=== PATIENT | female | born 1940 | race Hispanic/Latino ===

== ENCOUNTER 2016-10-06 13:34 | Inpatient (IN) | payer MEDICARE, BC ==
[2016-10-06 13:38] VITALS: BMI 20.3
--- NOTE | 2016-10-06 14:19 | RAD ---
PROCEDURE: Left Ankle Radiographs. HISTORY: pain COMPARISON: None FINDINGS: BONES: Minimally displaced medial malleolar fracture. Displaced oblique distal fibular fracture. JOINTS: Widened ankle mortise. Talar dome is smooth. SOFT TISSUES: Mild circumferential soft tissue swelling. OTHER FINDINGS: None. IMPRESSION: Fracture medial malleolus and distal fibula.
--- NOTE | 2016-10-06 15:27 | ED PDOC ---
Arrival/HPI - General Chief Complaint: Trauma Time Seen by Provider: 10/06/16 13:53 Historian: Patient - History of Present Illness Narrative History of Present Illness (Text): 10/06/16 15:24 Patient with no past medical history, otherwise is healthy, reports injury of the L ankle, when she slipped and fell prior to arrival at her home. Patient now complains of pain; can bear weight on ankle. Otherwise: (-) hip pain, (-) head injury, (-) LOC, (-) back pain, (-) knee pain, (-) other injury. PMD Ruddy David Past Medical History - Provider Review Nursing Documentation Reviewed: Yes - Infectious Disease Hx of Infectious Diseases: None - Cardiac Hx Cardiac Disorders: No - Pulmonary Hx Respiratory Disorders: No - Psychiatric Hx Substance Use: No - Anesthesia Hx Anesthesia: No Family/Social History - Physician Review Nursing Documentation Reviewed: Yes Family/Social History: No Known Family HX Smoking Status: Never Smoked Hx Alcohol Use: No Hx Substance Use: No Allergies/Home Meds Allergies/Adverse Reactions: Allergies No Known Allergies Allergy (Verified 10/06/16 13:38) Home Medications: Home Meds Medication Instructions Recorded Confirmed No Known Home Med 10/06/16 10/06/16 Review of Systems - Review of Systems Constitutional: Normal. absent: Fatigue, Weight Change, Fevers Respiratory: Normal. absent: SOB, Cough, Sputum Cardiovascular: Normal. absent: Chest Pain, Palpitations, Edema Gastrointestinal: Normal. absent: Abdominal Pain, Stool Changes, Constipation Musculoskeletal: Normal, Arthralgias. absent: Back Pain, Neck Pain Skin: Normal. absent: Rash, Pruritis, Skin Lesions Neurological: Normal. absent: Headache, Dizziness, Focal Weakness Physical Exam - Physical Exam Narrative Physical Exam (Text): 10/06/16 15:26 GENERAL APPEARANCE: Patient is awake, alert, oriented x 3, in mild painful distress. SKIN: Warm, dry; (-) cyanosis. EYES: (-) conjunctival pallor. ENMT: Mucous membranes moist. NECK: (-) tenderness, (-) stiffness, (-) lymphadenopathy, (-) JVD. CHEST AND RESPIRATORY: (-) rash, (-) chest wall tenderness. Lungs: (-) rales , (-) rhonchi, (-) wheezes, (-) rub; breath sounds equal bilaterally. HEART AND CARDIOVASCULAR: (-) irregularity; (-) murmur, (-) gallop, (-) rub. ABDOMEN AND GI: Soft; (-) distention, (-) tenderness, (-) palpable pulsatile mass. LOWER EXTREMITY: Ankle: (+) Deformity noted, (+) swelling, tenderness of the medial aspect of the ankle; (+) ecchymosis, swelling and tenderness of the lateral ankle; (+) limited range of motion secondary to pain. Achilles tendon intact and nontender. Knee and foot: (-) injury. (+) distal pulse, (+) distal sensation. NEURO AND PSYCH: Mental status as above. Cranial nerves grossly intact; strength symmetric. Vital Signs Temp Pulse Resp BP Pulse Ox 10/06/16 17:15 98.5 F 67 20 98 10/06/16 13:41 97.9 F 62 19 120/69 99 Medical Decision Making ED Course and Treatment: 10/06/16 15:30 76-year-old female otherwise healthy with no past medical history, presents with injury to the left ankle, based on exam patient likely has a fracture. X- ray left ankle ordered. Patient is refusing any pain medication at this time. Call placed to patient's PMD for orthotic consultation. Case discussed with Dr. Salazar, recommends Dr. Albert for orthopedic consult. Case discussed with Dr. Albert, recommends that patient be admitted, is also requesting ice, elevation, and splint application at this time. Labs ordered. Patient medicated with morphine and Zofran IV. Orthoglass posterior short leg and sugar tong splint applied by PA. Neurovascular intact post splint application. Based on history, exam and diagnostic results plan will be for inpatient admission. Dr. Salazar notified of plan. Patient states she fully agrees with and understands the current plan of care. I have given the patient opportunity to ask any additional questions. - Lab Interpretations Lab Results: 10/06/16 16:00 10/06/16 16:00 Lab Results 10/06/16 16:20: Blood Type Pending, Antibody Screen Pending, BBK History Checked No verified bt 10/06/16 16:00: PT 10.7, INR 0.99, APTT 26.0 10/06/16 16:00: Sodium 138, Potassium 3.7, Chloride 99, Carbon Dioxide 26, Anion Gap 17, BUN 15, Creatinine 0.8, Est GFR ( Amer) > 60, Est GFR (Non- Af Amer) > 60, Random Glucose 115 H, Calcium 9.0, Total Bilirubin 0.9, AST 35, ALT 42, Alkaline Phosphatase 72, Total Protein 7.2, Albumin 4.4, Globulin 2.8, Albumin/Globulin Ratio 1.6 10/06/16 16:00: WBC 4.5, RBC 3.59, Hgb 11.7 L, Hct 33.3 L, MCV 92.8, MCH 32.6, MCHC 35.1, RDW 12.7, Plt Count 185, MPV 9.8 I have reviewed the lab results: Yes Interpretation: All labs normal - RAD Interpretation Narrative RAD Interpretations (Text): 10/06/16 17:17 CXR : NAD, as read by PA X-ray left ankle: FINDINGS: BONES: Minimally displaced medial malleolar fracture. Displaced oblique distal fibular fracture. JOINTS: Widened ankle mortise. Talar dome is smooth. SOFT TISSUES: Mild circumferential soft tissue swelling. OTHER FINDINGS: None. IMPRESSION: Fracture medial malleolus and distal fibula. Radiology Orders: 10/06/16 13:54 ANKLE LEFT 3 VIEWS ROUTINE [RAD] Stat 10/06/16 15:54 CHEST PORTABLE [RAD] Stat - Medication Orders Current Medication Orders: Acetaminophen (Tylenol 325mg Tab) 650 mg PO Q4H PRN PRN Reason: Pain, Mild (1-3) Morphine Sulfate (Morphine) 4 mg IVP Q4 PRN PRN Reason: Pain, severe (8-10) Oxycodone/Acetaminophen (Percocet 5/325 Mg Tab) 1 tab PO Q4 PRN PRN Reason: Pain, moderate (4-7) Stop: 10/09/16 20:01 Discontinued Medications Morphine Sulfate (Morphine) 4 mg IVP STAT STA Stop: 10/06/16 15:56 Last Admin: 10/06/16 16:50 Dose: 4 mg Ondansetron HCl (Zofran Inj) 4 mg IVP STAT STA Stop: 10/06/16 15:56 Last Admin: 10/06/16 16:01 Dose: 4 mg Ondansetron HCl (Zofran Inj) Confirm Administered Dose 4 mg .ROUTE .STK-MED ONE Stop: 10/06/16 16:00 Last Admin: 10/06/16 16:00 Dose: - PA / RESAWYER / Resident Statement MD/DO has reviewed & agrees with the documentation as recorded. Disposition/Present on Arrival - Present on Arrival Any Indicators Present on Arrival: No History of DVT/PE: No History of Uncontrolled Diabetes: No Urinary Catheter: No History of Decub. Ulcer: No History Surgical Site Infection Following: None - Disposition Have Diagnosis and Disposition been Completed?: Yes Diagnosis: Trimalleolar fracture of left ankle Disposition: HOSPITALIZED Disposition Time: 15:30 Patient Plan: Admission Patient Problems: Current Active Problems Problem Status Onset Trimalleolar fracture of left ankle Acute Condition: STABLE
[2016-10-06] MEDS ORDERED: Morphine 4 mg/ml ISec IVP STA (15:55)
[2016-10-06 16:13] LABS: HEMATOCRIT 33.3 % (36.0-48.0); MEAN CELL VOLUME 92.8 fL (80.0-105.0); MEAN CORPUSCULAR HEMOGLOBIN 32.6 pg (25.0-35.0); MEAN CORPUSCULAR HGB CONC 35.1 g/dl (31.0-37.0); MEAN PLATELET VOLUME 9.8 fl (7.0-11.0); RED CELL DISTRIBUTION WIDTH 12.7 % (11.5-14.5); WHITE BLOOD COUNT 4.5 10^3/ul (4.5-11.0)
[2016-10-06 16:14] LABS: ALB/GLOB RATIO 1.6 (1.1-1.8); ALKALINE PHOSPHATASE 72 U/L (38-133); ALT/SGPT 42 U/L (7-56); AST/SGOT 35 U/L (15-39); BILIRUBIN,TOTAL 0.9 mg/dL (0.2-1.3); BLOOD UREA NITROGEN 15 mg/dL (7-21); CARBON DIOXIDE 26 mmol/L (21-33); CHLORIDE 99 mmol/L (98-107); GFR AFRICAN-AMERICAN > 60; GLUCOSE,RANDOM 115 mg/dL (70-110); POTASSIUM 3.7 mmol/L (3.6-5.0); SODIUM 138 mmol/L (132-148); TOTAL PROTEIN 7.2 g/dL (5.8-8.3)
[2016-10-06 16:23] LABS: INR 0.99 (0.93-1.08)
--- NOTE | 2016-10-06 16:25 | RAD ---
HISTORY: Preop COMPARISON: No prior. FINDINGS: LUNGS: No active pulmonary disease. PLEURA: No significant pleural effusion identified, no pneumothorax apparent. CARDIOVASCULAR: Normal. OSSEOUS STRUCTURES: No significant abnormalities. VISUALIZED UPPER ABDOMEN: Normal. OTHER FINDINGS: None. IMPRESSION: No active disease.
[2016-10-06] MEDS: Oxycodone/Acetaminophen 5/325 mg Tab PO PRN (19:13)
[2016-10-06] MEDS: Morphine 4 mg/ml ISec IVP PRN (22:13)
[2016-10-07] MEDS: Oxycodone/Acetaminophen 5/325 mg Tab PO PRN (00:45)
[2016-10-07] MEDS: Morphine 4 mg/ml ISec IVP PRN ×2 (03:17→08:02)
[2016-10-07 08:51] VITALS: BP 139/71; PULSE 62; RESP 18; TEMP 98.2; O2SAT 94
--- NOTE | 2016-10-07 09:05 | CON ---
DATE: 10/07/2016 INPATIENT CONSULT REASON FOR CONSULT: Left ankle trimalleolar fracture. This is a 76-year-old female who presented yesterday status post fall with left ankle pain and deform ity. The patient denies any other injuries. She denies any numbness or tingling in her foot. On examination of the left ankle, the left lower extremity splint was removed. She has a significant amount of swelling circumferentially around the ankle. She has good cap refill ____. Neurovascular ly, she is intact. Her calf is soft and nontender. She has tenderness both medially and laterally. Her skin is otherwise intact. Some ecchymosis is appreciated about the ankle. X-rays from the Emergency Room show a subluxed trimalleolar ankle fracture. Subluxation is best visu alized on the lateral view. A closed reduction was performed and a splint reapplied. PLAN: At this point, we are going to get repeat x-rays to assess the reduction. Because of the soft tissue swelling, most likely this will require 7-10 days of ice, elevation prior to definitive fixat ion. The patient and the family are aware of this. We will follow up with the x-rays. Aguila Owusu MD cc: [id number] TT: 10/07/2016 09:04:07 Confirmation # [id number] Dictation # [id number]
[2016-10-07] MEDS ORDERED: oxyCODONE 10 mg Immediate Release Tab PO PRN (09:12)
--- NOTE | 2016-10-07 09:29 | RAD ---
PROCEDURE: Left Ankle Radiographs. HISTORY: s/p left ankle reduction COMPARISON: 10/06/2016 FINDINGS: BONES: There is a trimalleolar fracture. There is slight improvement in alignment following placement of a cast. JOINTS: There is posterior displacement of the dome of the talus relative to the articular surface of the tibia. Slight improvement postreduction SOFT TISSUES: Normal. OTHER FINDINGS: None. IMPRESSION: As above
--- NOTE | 2016-10-07 09:39 | HP ---
CHIEF COMPLAINT AND HISTORY OF PRESENT ILLNESS: This is a 76-year-old female who is coming into the hospital after she had a fall. She said that she slipped at home and says that her left ankle started having significant pain. She was seen in the ER and was found to have a left ankle fracture. She was admitted for further evaluation. The patient has no complaints of any headaches , no dizziness. She was given morphine for pain. She says the morphine did help her. The Percocet overnight did not help her. She said the pain was 7/ 10. No chest pain, no shortness of breath, no nausea, no syncopal episode. ALLERGIES: No known drug allergies. PAST MEDICAL HISTORY: No significant. SOCIAL HISTORY: She never smoked. Denies alcohol and drug use. FAMILY HISTORY: Noncontributory. PHYSICAL EXAMINATION: VITAL SIGNS: Temperature is 98.2, pulse of 62, blood pressure is 139/71, respirations 18, O2 saturation 94%. Height is 5 feet 3 inches, weight is 115 pounds, BMI is 20.4. GENERAL: The patient lying in bed, flat, and in no apparent distress. HEAD AND NECK EXAM: Atraumatic, normocephalic. Conjunctivae are pink. Throat clear and mouth with moist mucosa. Oropharynx benign. EYES: Extraocular movements are intact. PERRLA. NECK: Supple. No JVD, thyromegaly, or adenopathy. No bruits. HEART: S1 and S2 regular rate and rhythm. No murmurs, rubs, or gallops. LUNGS: Clear to auscultation bilaterally. No wheezing rales or rhonchi appreciated. No retractions on exam. ABDOMEN: Soft, nontender, nondistended. Bowel sounds are positive in all quadrants. No rebound. No hepatosplenomegaly. EXTREMITIES: In the left ankle, there is decreased range of motion secondary to soft cast that is on her. No cyanosis, clubbing, or edema. NEUROLOGIC: No facial asymmetry, tongue is midline, no uvula deviation. Power is 5/5 in upper extremity and 5/5 in lower extremity. Sensation is normal in upper extremity and lower extremity. PSYCHIATRIC: Awake, alert, oriented x 3. No anxiety or depression symptoms. Good insight. Normal affect. GENITOURINARY: No CVA tenderness VASCULAR: 2+ pulses in carotid and pedal pulses. SKIN: No erythema or abnormal nodules noted. SPINE: Normal curvature. LYMPHADENOPATHY: No anterior cervical or posterior cervical adenopathy. No inguinal adenopathy. LABORATORIES: Have been reviewed. White count of 4.5, hemoglobin is 11.7, creatinine 0.8. Left ankle x-ray shows fractured left malleolus and distal fibular fracture. Chest x-ray shows no active disease. ASSESSMENT: Left medial malleolus and distal fibular fracture. PLAN: The patient is currently comfortable. She said the Percocet do not help her. I will increase her pain medications to oxycodone 10. She is also advised to take Motrin for mild pain. She is optimized clinically. She was seen by Dr. Owusu. I did speak to him. She does have soft tissue swelling and will need to have the swelling go down over the next week so that she can be ready for surgery. I did speak to the patient's at the bedside to give him an update on the patient's diagnosis and plan of care. The patient had an EKG. It showed sinus rhythm, no ST-T changes. The patient is optimized for surgery. She is going to be placed on oxycodone for pain as needed. She is on a regular diet. She is going to have repeat x-ray of the left ankle to see if it is in place. PT will also see her, so she knows how to ambulate not putting pressure on her left foot. The patient to be discharged home. Addendum: Pt was seen by Dr Dumont and is cleared for surgery. She is optimized. She is coming in next week for surgery by Dr Albert. David Salazar MD cc: [id number] TT: 10/07/2016 09:38:17 en [email or web address]
[2016-10-07] MEDS ORDERED: Bupivacaine 0.5% Inj(30mL) IJ ONE (10:15)
[2016-10-07] MEDS ORDERED: Morphine 4 mg/ml ISec IVP ONE (11:18)
--- NOTE | 2016-10-07 13:42 | RAD ---
PROCEDURE: Left ankle dated 10/07/2016 Three views of the left ankle performed through a fiberglass cast which partially obscures fine soft tissue and bone detail. HISTORY: reduction follow up COMPARISON: Comparison made with plain film radiographs 10/07/2016 at 0856 hours and prior study 10/06/2016. FINDINGS: BONES: Interval closed reduction previously noted trimalleolar fracture. JOINTS: Anatomic alignment improved with the less anterior subluxation of the distal tibia with respect to the talar dome SOFT TISSUES: Normal. OTHER FINDINGS: None. IMPRESSION: Interval closed reduction previously noted trimalleolar fracture. Anatomic alignment improved as above.
--- NOTE | 2016-10-07 16:46 | CARD ---
APPROVED REPORT EKG Measurement Heart [id number] <Conclusion> Normal sinus rhythm Septal infarct, age undetermined Abnormal ECG
--- NOTE | 2016-10-07 18:04 | CON ---
DATE: 10/07/2016 REASON FOR CONSULTATION: Cardiac evaluation and risk stratification, fractured ankle. HISTORY OF PRESENT ILLNESS: The patient is a 76-year-old female who slipped at home, found to have f ractured ankle. The patient denies chest pain, shortness of breath, palpitation. The patient lying flat in bed without any cardiac symptoms. Denies any history of exertional chest pain or shortness o f breath. PAST MEDICAL HISTORY: Not significant. PERSONAL HISTORY: Denies smoking, denies drinking, denied any drug abuse. ALLERGIES: The patient denies any allergies. MEDICATIONS: The patient was not taking any medication at home. FAMILY HISTORY: Not significant. REVIEW OF SYSTEMS: All the systems were reviewed, positives mentioned in the history, otherwise nega tive. PHYSICAL EXAMINATION: VITAL SIGNS: Blood pressure 139/71, respirations 18, pulse 62, temperature 98.2. HEENT: Head is normocephalic. Eyes: Pupils normal. Conjunctivae normal. Nose and throat normal. NECK: JVP low. Carotid equal. THORAX: AP diameter normal. LUNGS: Clear. CARDIOVASCULAR: S1, S2. ABDOMEN: Soft, nontender, no organomegaly. Bowel sounds normal. EXTREMITIES: No clubbing, no cyanosis. Left lower leg has a soft cast with a fractured left ankle, no clubbing, no cyanosis. LABORATORY DATA: WBC 4.5, hemoglobin 11.7, hematocrit 33.3, platelets 185. Sodium 138, potassium 3. 7, BUN 15, creatinine 0.8. AST, ALT normal. Total protein and albumin normal. Random glucose 115. Prothrombin time 10.7, INR 0.99, PTT 26.0. Chest x-ray: No active disease. EKG showed normal sinus rhythm, poor V1-V3. X-ray left ankle: Fracture of the medial malleolus and distal fibula. DIAGNOSIS: Fractured left ankle. PLAN: Clinically, the patient's cardiac status is stable and patient can go for surgery for ankle fr acture, has mild to moderate risk. Patient on at present. We will continue present therapy an d we will follow with you closely. Kush Dumont MD cc: [id number] TT: 10/07/2016 18:03:15 Confirmation # [id number] Dictation # [id number]
== END 2016-10-07 17:18 | disposition home or self-care (01) | DRG 563 ==
LOC: ED 13:34 → ERH 16:58 → 5RSO 18:11
PROVIDERS: ADMIT Internal Medicine Nephrology; ATTEND Internal Medicine Nephrology
PROC: 0QSKXZZ Reposition Left Fibula, External Approach (ICD-10-PCS; principal; 2016-10-07)
DX: S82.852A Displaced trimalleolar fracture of left lower leg, initial encounter for closed fracture (principal); W01.0XXA Fall on same level from slipping, tripping and stumbling without subsequent striking against object, initial encounter; Y93.9 Activity, unspecified; Y92.009 Unspecified place in unspecified non-institutional (private) residence as the place of occurrence of the external cause; Y99.9 Unspecified external cause status

== ENCOUNTER 2016-10-15 12:34 | Day surgery (SDC) | payer MEDICARE, BC ==
[2016-10-09 09:55] VITALS: BMI 19.5
[2016-10-15] MEDS ORDERED: Bupivacaine 0.5% Inj(30mL) ONE (14:25)
[2016-10-15] MEDS ORDERED: Midazolam 2 MG/2 ML VIAL ONE (14:45)
[2016-10-15] MEDS ORDERED: Propofol 10 mg/ml Inj (20 ML) ONE ×2 (14:45→17:26)
[2016-10-15] MEDS ORDERED: Rocuronium 10 mg/ml (5 ml) ONE (14:50)
[2016-10-15] MEDS ORDERED: Neostigmine Methylsulfate 3mg/3ml Syringe IV ONE (15:13)
[2016-10-15] MEDS ORDERED: Glycopyrrolate 0.2 mg/ml (2ml vial) ONE (15:13)
[2016-10-15] MEDS ORDERED: Lactated Ringer's 1,000 ML IV SCH (17:03)
[2016-10-15] MEDS ORDERED: HYDROmorphone 0.5 mg/0.5 ml ISec IVP PRN (17:03)
[2016-10-15] MEDS ORDERED: Oxycodone/Acetaminophen 5/325 mg Tab PO PRN (17:37)
[2016-10-15] MEDS ORDERED: HYDROmorphone 0.5 mg/0.5 ml ISec ONE ×4 (17:53→18:55)
--- NOTE | 2016-10-15 19:36 | OP ---
PROCEDURE DATE: 10/15/2016 PREOPERATIVE DIAGNOSIS: Left ankle trimalleolar fracture dislocation. POSTOPERATIVE DIAGNOSIS: Left ankle trimalleolar fracture dislocation. PROCEDURE: ORIF of left ankle trimalleolar fracture. SURGEON: Aguila Owusu M.D. NAIL CUTTER: Dr. Owusu was assisted Jeffry Carrillo. Miss Carrillo was scrubbed and present throughout the case and helped with the patient, retraction, fracture reduction and wound closure. ANESTHESIA: General. COMPLICATIONS: None. ESTIMATED BLOOD LOSS: 20 mL. TOURNIQUET TIME: 115 minutes at 300 mmHg. INDICATIONS FOR PROCEDURE: This is a 76-year-old female who presented status post fall with a left a nkle fracture dislocation. The patient subsequently underwent a closed reduction and splinting. Rec ommendations on admission were to bring the patient back for definitive fixation once the soft tissue swelling had subsided. Subsequently, the patient presented today, approximately 9 days status post fall. Informed consent was obtained and the patient was taken to the operating room. OPERATIVE PROCEDURE: After surgical site was found and verified in preoperative holding area, the pa tient was taken to the operating room and placed supine on the operating table. After administration of general anesthesia, the patient received 2 grams of Ancef IV. Tourniquet was placed about the le ft thigh. Care was taken to make sure all bony prominences and nerves were well padded and protected and the left lower extremity was prepped and draped in usual sterile fashion. Using the C-arm image intensifier, the bony landmarks were identified about the left ankle and approximately 8 cm longitud inal incision was made over the fibula. Soft tissue was dissected bluntly down to the fracture site. Any fracture hematoma was evacuated and the fracture was inspected. The patient was noted to have a significantly comminuted fracture with multiple comminuted fragments in both the sagittal and coron al planes. At this point, the wound was irrigated and due to the comminution and the poor bone quali ty, the decision was made to put a plate on without putting a lag screw. So the major fracture line was provisionally held using bone reduction forceps and K wires, and a 5-hole [employer] distal fibula l ocking plate was applied. The plate was held to the bone using K wires and our reduction was checked . Satisfied with our reduction, the fracture was then fixed using 3 locking screws in the shaft and 5 locking screws in the distal fragments. The patient also had multiple fragments, and using #2 Fibe rWire, these fractures were sutured through the K-wire holes into the plate bringing those fragments together. X-rays were down in both the AP and lateral and mortise plane confirming a good reduction. At this point, our attention was directed to the medial side. An approximately 4 cm curvilinear in cision was made. Soft tissue was dissected bluntly down to the fracture site. Any fracture hematoma was evacuated and the fracture was irrigated with antibiotic saline solution. 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 The patient had a small fragment right at the tip of the medial malleo tomasa. At this point, 2 K-wires were first used to provisionally hold the fragment in place and positi oned the K-wires which using the imaging intensifier. Once this was done, the holes for the ou r lag screws were drilled and 2 cannulated partially threaded screws were inserted over the K-wires. Once they were inserted, the K-wires were removed, and using the C-arm image fracture reduction was checked. Satisfied with the reduction, the decision was made not to fix the posterior malleolus frag ment as it encompassed less than 20% of the articular surface. At this point, a Cotton test and stre ss x-rays were taken confirming that the syndesmosis was intact. Finally, both wounds were copiously irrigated and closed in a layered fashion. A sterile dressing was applied and an AO splint was appl ied. The patient was transferred to the stretcher, awakened and taken to recovery room in stable and satisfactory condition. Aguila Owusu MD cc: [id number] TT: 10/15/2016 19:36:07 [email or web address]
[2016-10-15] MEDS: Morphine 2 mg/ml ISec IVP PRN (20:12)
[2016-10-15] MEDS: ceFAZolin 1 gm in NS 1 GM/100 ML BAG IVPB SCH (21:04)
[2016-10-16] MEDS: Morphine 2 mg/ml ISec IVP PRN ×3 (00:05→09:01)
[2016-10-16] MEDS: ceFAZolin 1 gm in NS 1 GM/100 ML BAG IVPB SCH (06:44)
[2016-10-16 08:23] VITALS: BP 159/68; PULSE 69; RESP 18; TEMP 97.7; O2SAT 100
--- NOTE | 2016-10-16 08:25 | RAD ---
PROCEDURE: Left ankle dated 10/15/2016. Three views of the left ankle for performed through a fiberglass cast which obscures fine soft tissue and bone detail. . HISTORY: pt in pacu, s/p ankle ORIF COMPARISON: Comparison made with prior study 10/07/2016. FINDINGS: BONES: Status post ORIF previously noted fractures of the distal fibula and tibia. Of long segment lateral fixation plate attached to the the the distal fibula reducing a comminuted displaced fracture of the distal fibula. 2 cannulated partially threaded compression screws reduce a fracture of the medial malleolus. . JOINTS: . Talar dome appears intact. SOFT TISSUES: Normal. OTHER FINDINGS: None. IMPRESSION: ORIF fractures of the distal tibia and fibula
--- NOTE | 2016-10-16 11:25 | RAD ---
PROCEDURE: Intraoperative Fluoroscopy. HISTORY: O.R.I.F. LEFT ANKLE FX. FINDINGS: Fluoroscopic assistance was provided for ORIF fractures of the distal tibia and fibula. Approximately 1 minute 29 seconds fluoroscopy time utilized during this procedure. Please refer to the operative report for additional details.
[2016-10-16] MEDS ORDERED: Enoxaparin 30 mg Syringe SC SCH (15:00)
== END 2016-10-16 12:51 | disposition home or self-care (01) ==
LOC: SDS 12:34 → 5RSO 19:59 → SDS 10-16 12:51
PROVIDERS: ATTEND Orthopaedic Surgery
DX: S82.852A Displaced trimalleolar fracture of left lower leg, initial encounter for closed fracture (principal); W19.XXXA Unspecified fall, initial encounter
CPT/HCPCS: 27823; 73610; 76000; 97161; C1713 ×8; C1769; G8978; G8979; J0690; J1100; J1170; J2001; J2250; J2270 ×2; J2405; J2704; J2710; J3010; J7120 ×2

== ENCOUNTER 2017-05-30 06:00 | Day surgery (SDC) | payer MEDICARE, BC ==
[2017-05-30 06:47] VITALS: BMI 19.5
[2017-05-30 06:56] VITALS: RESP 18
[2017-05-30] MEDS ORDERED: Bupivacaine 0.5% Inj(30mL) ONE (07:14)
[2017-05-30] MEDS ORDERED: Midazolam 2 MG/2 ML VIAL ONE (07:23)
[2017-05-30] MEDS ORDERED: Propofol 10 mg/ml Inj (20 ML) ONE (07:25)
[2017-05-30] MEDS ORDERED: Sevoflurane - Inhalation Anesthetic Liq (250 ml) ONE (07:40)
[2017-05-30] MEDS ORDERED: HYDROmorphone 0.5 mg/0.5 ml ISec IVP PRN (09:02)
[2017-05-30] MEDS ORDERED: Oxycodone/Acetaminophen 5/325 mg Tab PO PRN (09:13)
[2017-05-30] MEDS ORDERED: HYDROmorphone 0.5 mg/0.5 ml ISec ONE ×4 (09:13→10:04)
[2017-05-30] MEDS ORDERED: Lactated Ringer's 1,000 ML IV SCH (09:15)
[2017-05-30] MEDS ORDERED: HYDROmorphone 0.5 mg/0.5 ml ISec IVP ONE ×4 (09:15→10:07)
--- NOTE | 2017-05-30 09:19 | PCM.SURG1 ---
Surgeon's Initial Post Op Note - Surgeon's Notes Surgeon: Naila Owusu MD Dishing Machine Operator: Con Nelson PA-C Type of Anesthesia: General LMA Anesthesia Administered By: Dr. Dahl Pre-Operative Diagnosis: Left ankle painful hardware Operative Findings: tourniquet: 23 min @300mmHg Post-Operative Diagnosis: Same Operation Performed: Left ankle removal of hardware (2 medial screws, one lateral screw, and retained suture) Specimen/Specimens Removed: none Estimated Blood Loss: EBL {In ML}: 2 Blood Products Given: N/A Drains Used: No Drains Post-Op Condition: Fair Date of Surgery/Procedure: 05/30/17 ( ) Time of Surgery/Procedure: :19 ( ) Results - Vital Signs Recent Vital Signs: Last Vital Signs Temp 97.4 F L 05/30/17 09:01 Pulse 62 05/30/17 09:01 Resp 18 05/30/17 09:01 BP 171/64 H 05/30/17 09:01 Pulse Ox 100 05/30/17 09:01 - Impressions Impression: [place] THREAT ANALYST patient report reviewed, no CDS. Patient counseled on the risks of addiction, physical or psychological dependence, and overdose associated with opioid drugs and the danger of taking opioid drugs with alcohol and other central nervous system depressants, and cautioned patient on storage and disposal.
[2017-05-30] MEDS ORDERED: Multivitamin With Minerals Tab PO SCH (10:00)
--- NOTE | 2017-05-30 10:16 | RAD ---
PROCEDURE: Left Ankle Radiographs. HISTORY: pt in pacu s/p hardware removal COMPARISON: 05/21/2017 FINDINGS: BONES: There has been removal of the screws in the medial malleolus. Surgical dressing is seen around the ankle JOINTS: Normal. No osteoarthritis. Ankle mortise maintained. Talar dome intact SOFT TISSUES: Normal. OTHER FINDINGS: None. IMPRESSION: There has been removal of the screws in the medial malleolus. Surgical dressing is seen around the ankle
--- NOTE | 2017-05-30 10:45 | RAD ---
PROCEDURE: Fluoroscopy up to 1 hour HISTORY: REMOVAL OF HARDWARE LT ANKLE COMPARISON: TECHNIQUE: Fluoroscopy was provided in the operating room. 14.4 seconds of fluoro time. 4 images were obtained FINDINGS: There is removal of the screws in the medial malleolus. The lateral plate and screws are unchanged IMPRESSION: As above
[2017-05-30 11:04] VITALS: TEMP 97.9; O2SAT 99
[2017-05-30 12:13] VITALS: BP 124/80; PULSE 68
--- NOTE | 2017-05-30 12:38 | OP ---
PROCEDURE DATE: 05/30/2017 PREOPERATIVE DIAGNOSIS: Symptomatic hardware deep of the left ankle. POSTOPERATIVE DIAGNOSIS: Symptomatic hardware deep of the left ankle. PROCEDURE: Removal of deep hardware in left ankle. SURGEON: Dr. Owusu. [employer]: Dr. Owusu was assisted by Jeffry Carrillo. Ms. Carrillo was scrubbed and present throughout the entire case and assisted in the patient's positioning, retraction and wound closure. TYPE OF ANESTHESIA: General. COMPLICATIONS: None. ESTIMATED BLOOD LOSS: 5 mL. TOURNIQUET TIME: 23 minutes at 300 mmHg. INDICATION FOR PROCEDURE: This is a 76-year-old female who approximately 7 months ago underwent an open reduction and internal fixation of the left ankle fracture dislocation. Postoperatively, the patient did well and achieved bony union of all fragments. The patient subsequently was starting to have some pain medially. On clinical exam, was noted to have a prominent screw medially and also a prominent screw of lateral malleolus. X-ray has confirmed this and recommendations were for removal of the hardware. The risks, benefits and alternatives of the procedure were discussed with the patient including refracture and informed consent was obtained. OPERATIVE PROCEDURE: After the surgical site was signed and verified in the preoperative holding area, the patient was taken to the operating room and placed supine on the operating room table. After administration of general anesthesia, the patient received 1 g of Ancef IV. Tourniquet was placed about the left thigh. Care was taken to make sure all bony prominences and nerves were well padded and protected and the left lower extremity was prepped and draped in usual sterile fashion. The tourniquet was inflated and prior medial incision was re-incised. Soft tissues were dissected bluntly down to the medial malleolus and using a freer elevator, both screws were seen. At this point, using appropriate size screwdriver, the screws were then removed. Now, the previous fracture site appear to be completely healed. No movement was noted. The C-arm image intensifier was brought in to confirm this. Satisfied attention was directed to the lateral side. A stab wound incision was made over the prominent screw and soft tissues were dissected bluntly down to the screw head and the screw was removed. Again, the C-arm image intensifier was brought in to confirm that fracture was completely healed. Satisfied, the incisions were irrigated with antibiotic saline solution and closed in a layered fashion. A sterile bulky dressing was applied. The patient was awakened from the procedure and taken to the recovery room in stable condition. Aguila Owusu MD
== END 2017-05-30 12:15 | disposition home or self-care (01) ==
LOC: SDS 06:00
PROVIDERS: ATTEND Orthopaedic Surgery
DX: T84.84XA Pain due to internal orthopedic prosthetic devices, implants and grafts, initial encounter (principal); Y84.8 Other medical procedures as the cause of abnormal reaction of the patient, or of later complication, without mention of misadventure at the time of the procedure; Z90.49 Acquired absence of other specified parts of digestive tract
CPT/HCPCS: 20680; 73610; 76000; J0690; J1170; J1885; J2001; J2250; J2405; J2704; J2765; J3010; J7120

== ENCOUNTER 2018-06-03 09:37 | Outpatient (CLI) | payer MEDICARE | END 2018-06-03 09:38 | disposition home or self-care (01) | LOC: RAD 09:37 ==

== ENCOUNTER 2018-07-26 16:44 | Emergency (ER) | payer MEDICARE | END 2018-07-26 21:24 | disposition home or self-care (01) | LOC: ED 16:44 ==